=== PATIENT | male | born 1935 | race Caucasian/White ===

== ENCOUNTER 2018-11-07 14:25 | Emergency (ER) | payer BC ==
[~2018-11-07] VITALS: Wt 76.4 kg
[~2018-11-07 14:25] MED LIST: AMLO-147; FURO20TA3; SODI650T; [UNRECOGNIZED DRUG - OTHER]
--- NOTE | 2018-11-07 15:54 | ERD ---
ER Documentation Chief Complaint Chief Complaint RIGHT NOSTRIL BLEEDING HPI 82-year-old male, presents to the emergency department, complaining of intermittent episodes of mild right nostril bleeding. The patient denies headaches, no blurred vision, no history of trauma. The patient is currently on anticoagulation medication. ROS All systems reviewed and are negative except as per history of present illness. Medications Home Meds Active Scripts Bacitracin* (Bacitracin Zinc Oint*) 28.35 Gm Oint, 1 APPLIC TOP BID for 7 Days, #1 TUB APPLI TO Prov:JENNIFER SNOW MD 11/07/18 Reported Medications [Xalexate Powder] No Conflict Check 01/01/10 Furosemide* (Furosemide*) 20 Mg Tablet 01/01/10 Sodium Bicarbonate* (Sodium Bicarbonate*) 650 Mg Tablet 01/01/10 Amlodipine Besylate* (Amlodipine Besylate*) 10 Mg Tablet 01/01/10 Allergies Allergies: Coded Allergies: No Known Allergy (Verified Allergy, Unknown, 10/02/06) PMhx/Soc History of Surgery: Yes (UROSTOMY) Hx Neurological Disorder: No Hx Respiratory Disorders: No Hx Cardiac Disorders: Yes (HTN) Hx Alcohol Use: No Hx Substance Use: No Hx Tobacco Use: No Smoking Status: Never smoker FmHx Family History: coronary disease; No diabetes Physical Exam Vitals Vital Signs Date Temp Pulse Resp B/P (MAP) Pulse Ox O2 O2 Flow FiO2 Time Delivery Rate 11/07/18 98.4 81 18 128/81 97 Room Air 16:09 (97) 11/07/18 98.4 78 18 130/78 97 14:29 (95) Physical Exam Const: No acute distress Head: Atraumatic Eyes: Normal Conjunctiva ENT: Normal External Ears, Nose without evidence of active bleeding and normal mouth. Neck: Full range of motion. No meningismus. Resp: Clear to auscultation bilaterally Cardio: Regular rate and rhythm, no murmurs Abd: Soft, non tender, non distended. Normal bowel sounds Skin: No petechiae or rashes Back: No midline or flank tenderness Ext: No cyanosis, or edema Neur: Awake and alert Psych: Normal Mood and Affect Procedures/MDM Differential diagnosis include but not limited to: trauma, vessel fragility, rhinosinusitis, neoplasm, coagulopathy. During the ED course the patient remained stable, no new complaints. No ev idence of active bleeding. The patient is stable to be treated outpatient and will be discharged home with instructions to apply bacitracin to keep the nasal mucosa moist and follow up in 48 hours with primary care provider. If symptoms persist, worsen or new symptoms develop, then patient should return to the ED immediately. Instructions explained and given directly by me to the patient with acknowledgment and demonstrated understanding. Disclaimer: Inadvertent spelling and grammatical errors are likely due to EHR/dictation software use and do not reflect on the overall quality of patient care. Also, please note that the electronic time recorded on this note does not necessarily reflect the actual time of the patient encounter. Departure Diagnosis: Primary Impression: Epistaxis Condition: Stable Additional Instructions: Thank you very much for allowing us to participate in your care. Your health and safety is our top priority at [facility]. Call your primary care doctor TOMORROW for an appointment during the next 2-4 days and bring all the information and medications prescribed. Have prescriptions filled and follow precisely the directions on the label. If the symptoms get worse and your provider is unavailable, return to the Emergency Department immediately. JENNIFER SNOW MD Nov 07, 2018 15:54
[2018-11-07] MEDS ORDERED: BACI28.34 TOP (15:57)
[2018-11-07 16:09] VITALS: BP 128/81; PULSE 81; RESP 18
== END 2018-11-07 16:08 | disposition home or self-care (01) ==
LOC: FTE 14:25
DX: R04.0 Epistaxis (principal); I10 Essential (primary) hypertension
CPT/HCPCS: 99283